=== PATIENT | male | born 1985 | race Two or more races ===

== ENCOUNTER 2021-12-05 20:29 | Inpatient (IN) | payer MEDICAID, OTHER ==
[~2021-12-05] VITALS: Ht 175.3 cm; Wt 99.8 kg
[2021-12-05 21:32] LABS: Basophils # (auto) 0.1 10 ^3/uL (0-0.2); Basophils % (auto) 0.7 % (0.0-2.0); Eosinophils # (auto) 0.5 10 ^3/uL (0-0.8); Eosinophils % (auto) 4.9 % (0.0-7.0); Hematocrit 44.9 % (41.0-53.0); Hemoglobin 14.8 g/dL (13.5-17.5); Lymphocytes # (auto) 3.1 10 ^3/uL (0.4-5.4); Lymphocytes % (auto) 32.2 % (10.0-50.0); Mean Corpuscular Hemoglobin 27.4 pg (28.0-32.0); Mean Corpuscular Volume 83.1 fL (80.0-100.0); Monocytes # (auto) 0.7 10 ^3/uL (0-1.3); Monocytes % (auto) 7.3 % (0.0-12.0); Neutrophils # (auto) 5.4 10 ^3/uL (1.6-8.6); Neutrophils % (auto) 54.9 % (37.0-80.0); Red Blood Cells 5.41 10^6/uL (4.5-5.90); Red Cell Distribution Width 14.1 % (11.8-14.3); White Blood Cell 9.8 10^3/uL (4.4-10.8)
[2021-12-05 21:47] LABS: Albumin 3.9 g/dL (3.4-5.0); BUN/Creatinine Ratio 16.5; Potassium 3.9 mmol/L (3.5-5.1)
[2021-12-05 21:50] LABS: Bilirubin, Total 0.4 mg/dL (0.2-1.0); Total Protein 6.9 g/dL (6.4-8.2)
[2021-12-06] VITALS (7 sets, daily range): BP systolic 110–146; BP diastolic 57–83
[2021-12-06] MEDS ORDERED: MORPHINE SULFATE INJ 2 MG/ml SYRG IV PRN
[2021-12-06] MEDS ORDERED: NITROGLYCERIN 0.4 MG SL TAB SL PRN
[2021-12-06] MEDS ORDERED: TEMAZEPAM 15 MG CAP PO PRN
[2021-12-06] MEDS ORDERED: ONDANSETRON HCL 4 MG/2 ML VIAL IV PRN
[2021-12-06 01:19] LABS: Cholesterol 127 mg/dL (< 200); HDL Cholesterol 28 mg/dL (40-59); LDL Cholesterol 86 mg/dL (< 100); Triglycerides 215 mg/dL (< 150)
[2021-12-06] MEDS ORDERED: ATOR40TA52 PO (03:36)
[2021-12-06 06:43] LABS: Basophils # (auto) 0.1 10 ^3/uL (0-0.2); Basophils % (auto) 0.8 % (0.0-2.0); Eosinophils # (auto) 0.5 10 ^3/uL (0-0.8); Eosinophils % (auto) 5.5 % (0.0-7.0); Hematocrit 42.6 % (41.0-53.0); Hemoglobin 14.3 g/dL (13.5-17.5); Lymphocytes # (auto) 3.1 10 ^3/uL (0.4-5.4); Lymphocytes % (auto) 35.4 % (10.0-50.0); Mean Corpuscular Hemoglobin 27.7 pg (28.0-32.0); Mean Corpuscular Hgb Conc. 33.5 g/dL (32.0-36.0); Mean Corpuscular Volume 82.8 fL (80.0-100.0); Monocytes # (auto) 0.7 10 ^3/uL (0-1.3); Neutrophils # (auto) 4.4 10 ^3/uL (1.6-8.6); Neutrophils % (auto) 50.3 % (37.0-80.0); Red Blood Cells 5.14 10^6/uL (4.5-5.90); Red Cell Distribution Width 13.6 % (11.8-14.3); White Blood Cell 8.8 10^3/uL (4.4-10.8)
[2021-12-06 06:47] LABS: Calcium 8.5 mg/dL (8.5-10.1); Potassium 4.1 mmol/L (3.5-5.1)
[2021-12-06 06:50] LABS: BUN/Creatinine Ratio 22.5
[2021-12-06] MEDS: ASPirin 81 mg TAB PO SCH (08:27)
[2021-12-06] MEDS: PANTOPRAZOLE 40 MG TAB PO SCH (08:27)
[2021-12-06 11:13] LABS: Alcohol, Urine < 3.0 mg/dL (0-10); Amphetamine Screen, Urine NEGATIVE (NEGATIVE); Barbiturate Scree,Urine NEGATIVE (NEGATIVE); Benzodiazephine Screen, Urine NEGATIVE (NEGATIVE); Cannabinoid Screen, Urine NEGATIVE (NEGATIVE); Cocaine Screen, Urine NEGATIVE (NEGATIVE); Opiate Scree,Urine NEGATIVE (NEGATIVE); Phencyclidine Screen, Urine NEGATIVE (NEGATIVE)
[2021-12-07 05:00] VITALS: BP 113/56
[2021-12-07 09:00] VITALS: BP 111/68
[2021-12-07] MEDS ORDERED: ADENOSINE 84 MG in GIVE UN-DILUTED 0 ML IV ONE (09:00)
[2021-12-07] MEDS: ASPirin 81 mg TAB PO SCH (10:32)
[2021-12-07] MEDS: PANTOPRAZOLE 40 MG TAB PO SCH (10:33)
[2021-12-07 13:00] VITALS: BP 103/53
[2021-12-07] MEDS ORDERED: MAGN400T40 OR (14:05)
[2021-12-07 15:22] VITALS: BP 103/53
[2021-12-07 16:47] VITALS: BP 109/62
== END 2021-12-07 17:30 | disposition home or self-care (01) | DRG 201 ==
LOC: EDBD 20:29 → ER 20:33 → TELE 23:50 → TELE-WESTW 12-06 02:32
PROVIDERS: ADMIT Nurse Practitioner; ATTEND Internal Medicine
DX: R00.0 Tachycardia, unspecified (principal); E66.9 Obesity, unspecified; I45.10 Unspecified right bundle-branch block; E78.5 Hyperlipidemia, unspecified; Z20.822 Contact with and (suspected) exposure to COVID-19; Z68.32 Body mass index [BMI] 32.0-32.9, adult; Z72.0 Tobacco use; Z71.6 Tobacco abuse counseling
CPT/HCPCS: 36415; 71045; 78452; 80048; 80053; 80061; 80307; 83735; 84443; 84484; 85025; 93005; 93017; 93306; G0378; J0153

== ENCOUNTER 2022-01-24 18:11 | Emergency (ER) | payer MEDICAID ==
[~2022-01-24] VITALS: Ht 170.2 cm; Wt 100.0 kg
[~2022-01-24 18:11] MED LIST: ATOR40TA52 PO; MAGN400T40 OR
[2022-01-24 21:16] VITALS: BP 133/67
[2022-01-24] MEDS ORDERED: KETOROLAC TROMETH 60MG/2ML VIAL IM ONE (21:45)
== END 2022-01-25 00:14 | disposition home or self-care (01) ==
LOC: ER 18:11
DX: S93.401A Sprain of unspecified ligament of right ankle, initial encounter (principal); F17.210 Nicotine dependence, cigarettes, uncomplicated; Z79.899 Other long term (current) drug therapy; X50.1XXA Overexertion from prolonged static or awkward postures, initial encounter; Y93.89 Activity, other specified; Y92.89 Other specified places as the place of occurrence of the external cause; Y99.8 Other external cause status
CPT/HCPCS: 73610; 73630; 96372; 99284; J1885